=== PATIENT | male | born 1935 | race Caucasian/White ===

== ENCOUNTER 2017-01-16 06:37 | Day surgery (SDC) | payer OTHER ==
[~2017-01-16] VITALS: Ht 177.8 cm; Wt 99.8 kg
[2017-01-16] MEDS ORDERED: SIMETHICONE 40 MG/0.6 ML ML ONE (06:58)
[2017-01-16 08:34] VITALS: BP_SYST 146
== END 2017-01-16 08:15 | disposition home or self-care (01) ==
LOC: SDS 06:37 → SMU 07:48 → SDS 08:15
PROVIDERS: ATTEND Colon & Rectal Surgery
DX: Z12.11 Encounter for screening for malignant neoplasm of colon (principal); K57.30 Diverticulosis of large intestine without perforation or abscess without bleeding; K64.9 Unspecified hemorrhoids; Z86.010 Personal history of colon polyps
CPT/HCPCS: 45378; G0105; J7030